=== PATIENT | female | born 1995 | race Caucasian/White ===

== ENCOUNTER 2016-09-27 08:44 | Day surgery (SDC) | payer BC ==
--- NOTE | ~2016-09-27 | EGD ---
EGD REPORT [facility] [address] [address] NAME: ZAYNAB LOWERY : [birth year] STATUS : REG [facility]#: [id number] AGE: 21 ADM/REG DATE : 09/27/16 MR#: [id number] REPORT SERV DATE: 09/27/16 DICTATED BY: ROLANDO MCCLOUD DATE: 09/27/16 REPORT STATUS : Draft TRANSCRIBED BY: [facility] DATE: 09/27/16 Endoscopy Center Patient Name: Zaynab Lowery Date of : 1995 Attending MD: ROLANDO MCCLOUD MD Procedure Date No Time: 09/27/2016 Procedure: Upper GI endoscopy Indications: Upper abdominal pain, Heartburn, Diarrhea, Family history of gastric lymphoma in mother Referring MD: John OSPINA Medicines: Propofol per Anesthesia Complications: No immediate complications. Estimated blood loss: None. Procedure: Pre-Anesthesia Assessment: - After reviewing the risks and benefits, the patient was deemed in satisfactory condition to undergo the procedure. - Prior to the procedure, a History and Physical was performed, and patient medications and allergies were reviewed. The patient's tolerance of previous anesthesia was also reviewed. The risks and benefits of the procedure and the sedation options and risks were discussed with the patient. All questions were answered, and informed consent was obtained. Prior Anticoagulants: The patient has taken no previous anticoagulant or antiplatelet agents. ASA Grade Assessment: II - A patient with mild systemic disease. After reviewing the risks and benefits, the patient was deemed in satisfactory condition to undergo the procedure. After obtaining informed consent, the endoscope was passed under direct vision. Throughout the procedure, the patient's blood pressure, pulse, and oxygen saturations were monitored continuously. The GIF [id number] was introduced through the mouth, and advanced to the jejunum. The upper GI endoscopy was accomplished without difficulty. The patient tolerated the procedure well. Findings: The examined esophagus was normal. The entire examined stomach and gastroesophageal junction (on retroflexion) were normal. The examined duodenum was normal. Biopsies were taken with a cold forceps for histology. Estimated blood loss: none. Impression: - Normal esophagus. EGD REPORT [address] [address] NAME: ZAYNAB LOWERY : [birth year] [place]US : [place] [facility] [place] [id number] AGE: 21 ADM/REG DATE : 09/27/16 MR#: [id number] REPORT SERV DATE: 09/27/16 DICTATED BY: ROLANDO MCCLOUD DATE: 09/27/16 REPORT STATUS : Draft TRANSCRIBED BY: [employer] DATE: 09/27/16 - Normal stomach and gastroesophageal junction. - Normal examined duodenum. Biopsied. - Non-erosive esophageal reflux (NERD) disease present. Recommendation: - Discharge patient to home (ambulatory). - Return to previous diet. - Decrease excess weight. - Continue present medications. - Begin Protonix (pantoprazole) 40 mg each morning. - Discontinue Excedrin and other NSAID medications. - Await pathology results. - Perform a colonoscopy today. - Patient has a contact number available for emergencies. The signs and symptoms of potential delayed complications were discussed with the patient. Return to normal activities tomorrow. Written discharge instructions were provided to the patient. Procedure Code(s): --- Professional --- 29814, Esophagogastroduodenoscopy, flexible, transoral; with biopsy, single or multiple Diagnosis Code(s): --- Professional --- K21.9, Gastro-esophageal reflux disease without esophagitis R10.10, Upper abdominal pain, unspecified R12, Heartburn R19.7, Diarrhea, unspecified CPT copyright 2013 [employer]. All rights reserved. The codes documented in this report are preliminary and upon instructor extension work review may be revised to meet current compliance requirements. ROLANDO MCCLOUD MD 09/27/2016 10:58 AM This report has been signed electronically. Number of Addenda: 0 Note Initiated On: 09/27/2016 10:38 AM Scope Withdrawal Time 0 hours 0 minutes 0 seconds [address] [address]
--- NOTE | ~2016-09-27 | EGD ---
EGD REPORT [facility] [address] [address] NAME: ZAYNAB LOWERY : [birth year] [place] [facility] [place]#: [id number] AGE: 21 ADM/REG DATE : 09/27/16 MR#: [id number] REPORT SERV DATE: 09/27/16 DICTATED BY: ROLANDO MCCLOUD DATE: 09/27/16 REPORT STATUS : Draft TRANSCRIBED BY: [facility] DATE: 09/27/16 Endoscopy Center Patient Name: Zaynab Lowery Date of : 1995 Attending MD: ROLANDO MCCLOUD MD Procedure Date No Time: 09/27/2016 Procedure: Colonoscopy Indications: Hematochezia, Diarrhea Referring MD: John OSIPNA Medicines: Propofol per Anesthesia Complications: No immediate complications. Estimated blood loss: None. Procedure: Pre-Anesthesia Assessment: - After reviewing the risks and benefits, the patient was deemed in satisfactory condition to undergo the procedure. - Prior to the procedure, a History and Physical was performed, and patient medications and allergies were reviewed. The patient's tolerance of previous anesthesia was also reviewed. The risks and benefits of the procedure and the sedation options and risks were discussed with the patient. All questions were answered, and informed consent was obtained. Prior Anticoagulants: The patient has taken no previous anticoagulant or antiplatelet agents. ASA Grade Assessment: II - A patient with mild systemic disease. After reviewing the risks and benefits, the patient was deemed in satisfactory condition to undergo the procedure. After I obtained informed consent, the scope was passed under direct vision. Throughout the procedure, the patient's blood pressure, pulse, and oxygen saturations were monitored continuously. The CF [id number] was introduced through the anus and advanced to the terminal ileum, with identification of the appendiceal orifice and IC valve. The colonoscopy was performed without difficulty. The ileocecal valve, appendiceal orifice and terminal ileum were photographed. The patient tolerated the procedure well. The quality of the bowel preparation was excellent. The bowel preparation used was SUPREP. Scope withdrawal time was greater than 6 minutes. Findings: The perianal and digital rectal examinations were normal. Pertinent negatives include normal sphincter tone. The terminal ileum appeared normal. Non-bleeding internal hemorrhoids were found during retroflexion and EGD REPORT [address] [address] NAME: ZAYNAB LOWERY : [birth year] [place]US : [place] [facility] [place] [id number] AGE: 21 ADM/REG DATE : 09/27/16 MR#: [id number] REPORT SERV DATE: 09/27/16 DICTATED BY: ROLANDO MCCLOUD DATE: 09/27/16 REPORT STATUS : Draft TRANSCRIBED BY: [facility] DATE: 09/27/16 were small and Grade I (internal hemorrhoids that do not prolapse). The descending colon and ascending colon appeared normal. Biopsies were taken with a cold forceps for histology. Estimated blood loss: none. The exam was otherwise without abnormality. Impression: - The examined portion of the ileum was normal. - Non-bleeding internal hemorrhoids. - The descending colon and ascending colon are normal. Biopsied. - The examination was otherwise normal. - Irritable bowel syndrome with diarrhea. Recommendation: - Discharge patient to home (ambulatory). - Return to previous diet. - Continue present medications. - Begin Align or Culturelle as a probiotic daily. - Await pathology results. - Repeat colonoscopy at age 48 for screening purposes. - Return to GI clinic PRN. - Patient has a contact number available for emergencies. The signs and symptoms of potential delayed complications were discussed with the patient. Return to normal activities tomorrow. Written discharge instructions were provided to the patient. Procedure Code(s): --- Professional --- 37692, Colonoscopy, flexible, proximal to splenic flexure; with biopsy, single or multiple Diagnosis Code(s): --- Professional --- K64.0, First degree hemorrhoids K58.0, Irritable bowel syndrome with diarrhea K92.1, Melena CPT copyright 2013 [employer]. All rights reserved. The codes documented in this report are preliminary and upon commercial intern review may be revised to meet current compliance requirements. ROLANDO MCCLOUD MD 09/27/2016 11:19 AM This report has been signed electronically. Number of Addenda: 0 Note Initiated On: 09/27/2016 10:37 AM EGD REPORT [facility] [address] [address] NAME: ZAYNAB LOWERY : [birth year] STATUS : [place] [facility] [place]#: [id number] AGE: 21 ADM/REG DATE : 09/27/16 MR#: [id number] REPORT SERV DATE: 09/27/16 DICTATED BY: ROLANDO MCCLOUD DATE: 09/27/16 REPORT STATUS : Draft TRANSCRIBED BY: [employer] DATE: 09/27/16 Scope Withdrawal Time 0 hours 6 minutes 24 seconds [address] [address]
[~2016-09-27 08:44] MED LIST: ACET500CAP PO; ZOL50 PO
== END 2016-09-27 23:59 | disposition home or self-care (01) ==
LOC: DMU 08:44
PROVIDERS: Internal Medicine Gastroenterology
PROC: 0DB98ZX Excision of Duodenum, Via Natural or Artificial Opening Endoscopic, Diagnostic (ICD-10-PCS; 2016-09-27)
PROC: 0DBK8ZX Excision of Ascending Colon, Via Natural or Artificial Opening Endoscopic, Diagnostic (ICD-10-PCS; principal; 2016-09-27 10:45)
PROC: 0DBM8ZX Excision of Descending Colon, Via Natural or Artificial Opening Endoscopic, Diagnostic (ICD-10-PCS; 2016-09-27 10:45)
DX: K64.0 First degree hemorrhoids (principal); K58.0 Irritable bowel syndrome with diarrhea; K92.1 Melena; K21.9 Gastro-esophageal reflux disease without esophagitis; R10.10 Upper abdominal pain, unspecified; R12 Heartburn; R19.7 Diarrhea, unspecified; E66.9 Obesity, unspecified; F32.9 Major depressive disorder, single episode, unspecified; H93.25 Central auditory processing disorder; F41.9 Anxiety disorder, unspecified; Z90.89 Acquired absence of other organs; Z98.890 Other specified postprocedural states; Z88.2 Allergy status to sulfonamides; Z79.899 Other long term (current) drug therapy
CPT/HCPCS: 84703; 88305